=== PATIENT | female | born 1960 | race Caucasian/White ===

== ENCOUNTER 2023-12-25 07:10 | Emergency (ER) | payer BC ==
[2023-12-25] MEDS: Dexamethasone 4 MG/ML SDV PO ONE (07:44)
[2023-12-25] MEDS: EPINEPHrine 1 MG/1 ML Amp SUBCUT ONE (07:45)
[2023-12-25] MEDS: diphenhydrAMINE 25 MG Cap PO ONE (07:45)
== END 2023-12-25 09:33 | disposition home or self-care (01) ==
LOC: VM.ED 07:10 → SUPCPDRO 07:10 → VM.ED 09:33
DX: S50.861A Insect bite (nonvenomous) of right forearm, initial encounter (principal); S70.362A Insect bite (nonvenomous), left thigh, initial encounter; S70.361A Insect bite (nonvenomous), right thigh, initial encounter; W57.XXXA Bitten or stung by nonvenomous insect and other nonvenomous arthropods, initial encounter; Y93.H2 Activity, gardening and landscaping
CPT/HCPCS: 96372; 99281; A9270; J0171; J8540